=== PATIENT | female | born 1995 | race Caucasian/White ===

== ENCOUNTER 2020-02-05 18:49 | Emergency (ER) | payer OTHER, BC, SELFPAY ==
[2020-02-05 18:54] VITALS: BP 132/73; PULSE 89; RESP 18; TEMP 36.7; O2SAT 98; BMI 21.5
--- NOTE | 2020-02-05 19:10 | W.ED.FEMALGU ---
HPI - Female Genitourinary General: Chief complaint: Urogenital-Female Stated complaint: 8 weeks preg cramping/bleeding Time Seen by Provider: 02/05/20 18:58 History of Present Illness: HPI Narrative: Patient is a 24-year-old female presenting with concerns regarding a 8-week . She reports that she has been having a lot of cramping over the last 2 days and this evening had a small amount of bleeding. She has had 2 prior pregnancies, one was a miscarriage at about 5 weeks with no interventions required. Her second was a normal term with no complications and a vaginal delivery. She is taken several home tests that were positive. The first was around the first of this month. She is otherwise feeling fine and has no complaints. MD elicited complaint: dysuria, vaginal bleeding, pelvic pain and possible miscarriage Pertinent past history: prior miscarriages Onset (ago): day(s) (2) Quality of pain: cramping Associated symptoms: Deny abdominal pain, headache(s) or nausea Date of Last Menstrual Period: 12/12/19 Review of Systems General: Reports: 10 or more systems reviewed and unremarkable except in HPI and below Const: Denies: fever(s), chills, fatigue or malaise Eyes: Denies: change in vision ENMT: Denies: odynophagia Card: Denies: chest pain or swelling of feet/ankles Resp: Denies: dyspnea, productive cough or non-productive cough GI: Denies: abdominal pain, nausea or vomiting : Reports: vaginal bleeding and pelvic pain; Denies: flank pain or difficulty voiding Musc: Denies: neck pain or back pain Skin/Breast: Denies: rash Neuro: Denies: headache(s), numbness in extremities or weakness in extremities Froy/Lymph: Denies: easy bruising or easy bleeding PFSH ED PFSH: Social History Smoking and tobacco status: never smoked Female Reproductive History: Date of last menstrual period: 12/12/19 Physical Exam Const: COMMON NORMALS: no acute distress, patient oriented x3, no limitations and alert GENERAL APPEARANCE: cooperative and comfortable HENMT: HEAD & SCALP: normal to inspection FACE & SINUS: normal facial exam Eye: GENERAL EYE: appearance normal, both eyes and all related structures Neck/C-Spine: COMMON NORMALS: supple, no meningeal signs and no JVD Chest: COMMONS NORMALS: normal inspection of the chest Resp: COMMON NORMALS: normal respiratory effort, No use of accessory muscles and clear to auscultation bilaterally AUSCULTATION: clear to auscultation bilaterally Cardio: COMMON NORMALS: no JVD, regular rate, regular rhythm and No murmurs present (Cardio) RATE: regular rate RHYTHM: regular rhythm GI: COMMON NORMALS: Normal to inspection, nondistended, normoactive bowel sounds present, Soft to palpation and non-tender INSPECTION: Yes normal to inspection AUSCULTATION: Yes normoactive bowel sounds PALPATION: Yes Soft to palpation Back/Pelvis: COMMON NORMALS: thoracic and lumbar spine normal to inspection Extremity: COMMON NORMALS: normal to inspection Neuro: COMMON NORMALS: patient oriented x3, moves all extremities, no focal motor deficits and no sensory deficits noted SENSORIUM/ORIENTATION: Yes alert MENINGEAL SIGNS: Yes no meningeal signs Psych: COMMON NORMALS: mental status grossly normal, cooperative and normal affect Skin: COMMON NORMALS: no rashes or lesions noted and turgor normal GENERAL SKIN EXAM: no rashes or lesions noted and turgor normal Course ED course: Bedside transabdominal US done showing no clear IUP. Labs pending including quant HCG. Depending on level may need a formal US. Reevaluation(s): Reevaluation #1: US shows a 6 + week with a normal heart rate around 130. Very small subchorionic hemorrhage. Vital Signs: Vital signs: Vital Signs Temperature 98.0 F 02/05/20 18:54 Pulse Rate 89 02/05/20 18:54 Respiratory Rate 18 02/05/20 18:54 Blood Pressure 132/73 02/05/20 18:54 Pulse Oximetry 98 02/05/20 18:54 MDM - Female Lab Data: Labs: Lab Results 02/05/20 02/05/20 02/05/20 Range/Units 19:25 19:28 19:28 WBC 8.4 (4.0-10.0) 10^3/ uL RBC 4.26 (4.1-5.3) 10^6/u L Hgb 12.2 (11.5-15.3) g/dL Hct 37.1 (37.0-47.0) % MCV 87.1 (81-99) fL MCH 28.6 (28.0-34.0) pg MCHC 32.9 (30.0-36.0) g/dL RDW 12.7 (12.1-15.1) % Plt Count 323 (130-400) 10^3/c mm MPV 8.9 (7.4-10.4) fL Neut % (Auto) 64.9 % Lymph % (Auto) 26.5 % [place] % (Auto) 7.2 % Eos % (Auto) 1.0 % Baso % (Auto) 0.2 % Neut # (Auto) 5.5 (1.8-7.7) 10^3/u L Lymph # (Auto) 2.2 (0.8-4.8) 10^3/u L [place] # (Auto) 0.6 (0.2-0.9) 10^3/u L Eos # (Auto) 0.1 (0.0-0.8) 10^3/u L Baso # (Auto) 0.0 (0.0-0.1) 10^3/u L Nucleated RBC % (a uto) 0 % Nucleated RBCs # 0.0 /100WBC Sodium 138 (136-145) mmol/L Potassium 3.6 (3.5-5.1) mmol/L Chloride 103 (98-107) mmol/L Carbon Dioxide 24 (22-29) mmol/L Anion Gap 14.6 (5-19) BUN 4 L (6-20) mg/dL Creatinine 0.5 (0.5-0.9) mg/dL GFR Calculation 154.3 H (90-130) mL/min Glucose 92 (65-115) mg/dL Calculated Osmolal ity 281 L (285-295) mOsm/k g Calcium 10.2 (8.5-10.5) mg/dL Total Bilirubin 0.3 (0.15-1.2) mg/dL AST 15 (0-32) U/L ALT 13 (0-33) U/L Alkaline Phosphata se 77 (35-105) IU/L Total Protein 7.3 (6.6-8.7) g/dL Albumin 3.9 (3.5-5.2) g/dL Globulin 3.4 (1.3-4.6) g/dL [place] , [place] [address].00 mIU/mL Urine Color Straw (Yellow) Urine Appearance Clear (CLEAR) Urine pH 6 (5-7) Ur Specific Gravit y 1.010 (1.005-1.030) Urine Protein Neg (Negative) Urine Glucose (UA) Norm (Normal) Urine Ketones Negative (Negative) Urine Blood Neg (Negative) Urine Nitrate Negative (Negative) Urine Bilirubin Neg (NEGATIVE) Urine Urobilinogen Norm (Negative) mg/dL Ur Leukocyte Jazzy ase Negative (Negative) Discharge Plan Discharge Patient Disposition: Home, Self-Care Clinical Impression: Threatened in first trimester Condition: Stable Prescriptions: No Action No Known Home Medications RF: 0 Discharge Orders: Discharge Order (Routine); Ordered 02/05/20 Ordered By: Ambreen Calderon Referrals: Quincy Argueta MD [Primary Care Provider] - Discharge Diet: Usual diet Discharge Activity: Resume usual activity Patient Instructions: Threatened Miscarriage (ED) Activity Restrictions/Additional Instructions: Rest and avoid heavy lifting or intercourse. Follow up with your OB doctor to establish care. Return to the ED if new or worse symptoms including bleeding through more than a pad per hour for more than 2 hours in a row - or severe pain or fever. Coding Level of Care Code ED Supervisor Public Health Nursing for [employer] Fwd Exam Comprehensive
[2020-02-05 19:38] LABS: Basophils % 0.2 %; Eosinophils # 0.1 10^3/uL (0.0-0.8); Hematocrit 37.1 % (37.0-47.0); Hemoglobin 12.2 g/dL (11.5-15.3); Lymphocytes # 2.2 10^3/uL (0.8-4.8); Lymphocytes % 26.5 %; Mean Corpuscular HGB Conc 32.9 g/dL (30.0-36.0); Mean Corpuscular Hemoglobin 28.6 pg (28.0-34.0); Mean Corpuscular Volume 87.1 fL (81-99); Mean Platelet Volume 8.9 fL (7.4-10.4); Monocytes # 0.6 10^3/uL (0.2-0.9); Monocytes % 7.2 %; Neutrophils # 5.5 10^3/uL (1.8-7.7); Neutrophils % 64.9 %; Nucleated Red Blood Cells % 0 %; Platelet Count 323 10^3/cmm (130-400); Red Blood Count 4.26 10^6/uL (4.1-5.3); Red Cell Distribution Width 12.7 % (12.1-15.1); White Blood Count 8.4 10^3/uL (4.0-10.0)
[2020-02-05 19:45] LABS: Add Urine Microscopic? NO
[2020-02-05 19:52] LABS: Bilirubin Urine Neg (NEGATIVE); Blood Urine Neg (Negative); Glucose Urine UA Norm (Normal); Ketones Urine Negative (Negative); Leukocyte Esterase Urine Negative (Negative); Nitrate Urine Negative (Negative); Protein Urine Neg (Negative); Urine Appearance Clear (CLEAR); Urine Color Straw (Yellow); Urobilinogen Urine Norm (Negative); pH Urine 6 (5-7)
[2020-02-05 20:05] LABS: Alanine Aminotransferase 13 U/L (0-33); Albumin Level 3.9 g/dL (3.5-5.2); Alkaline Phosphatase 77 IU/L (35-105); Anion Gap 14.6 (5-19); Aspartate Amino Transferase 15 U/L (0-32); Blood Urea Nitrogen 4 mg/dL (6-20); Calcium 10.2 mg/dL (8.5-10.5); Carbon Dioxide 24 mmol/L (22-29); Chloride 103 mmol/L (98-107); Globulin 3.4 g/dL (1.3-4.6); Glomerular Filtration Rate 154.3 mL/min (90-130); Glucose 92 mg/dL (65-115); Osmolality Calculated 281 mOsm/kg (285-295); Potassium 3.6 mmol/L (3.5-5.1); Sodium 138 mmol/L (136-145); Total Bilirubin 0.3 mg/dL (0.15-1.2); Total Protein 7.3 g/dL (6.6-8.7)
--- NOTE | 2020-02-05 20:25 | US_ITS ---
WS: [id number] ULTRASOUND EARLY TECHNIQUE: Transabdominal sonography of the pelvis was performed. Followed by transvaginal sonography to better evaluate the uterus and ovaries. CLINICAL INFORMATION: preg, pelvic pain, bleeding LMP: 12/17/2019 Beta hCG: Unknown. COMPARISON: None. FINDINGS: UTERUS AND GESTATIONAL SAC Intrauterine gestations: Cervix measures 3.8 cm Intrauterine gestational sac. pole measures 8.5 mm Estimated gestational age: 6w6d Estimated delivery September 24, 2020 Yolk sac: 0.2 cm. heart motion: 136 BPM. Subchorionic hemorrhage: Small amount of subchorionic hemorrhage measuring 1.8 x 1.0 cm. OVARIES Right ovary: Normal. Left ovary: Normal. FREE FLUID Small amount of free fluid in the cul-de-sac. 2. Estimated gestational age: 6w6d 3. Small amount of subchorionic hemorrhage measuring 1.8 x 1.0 cm. Recommend short interval follow-u p. 4. Small amount of free fluid in the cul-de-sac. 5. Normal ovaries. US/US OB <=14 wk fetus w transvag IMPRESSION: 1. Single live intrauterine .
[2020-02-05 21:56] VITALS: BP 132/72; PULSE 72; RESP 18; O2SAT 98
== END 2020-02-05 21:57 | disposition home or self-care (01) ==
PROVIDERS: Emergency Provider Emergency Medicine; PCP Family Medicine
DX: O20.0 Threatened abortion (principal); Z3A.08 8 weeks gestation of pregnancy
CPT/HCPCS: 12345; 36415; 76801; 76817; 80053; 81003; 84702; 85025; 99282; 99283

== ENCOUNTER 2021-04-22 21:46 | Emergency (ER) | payer MEDICAID, SELFPAY ==
[2021-04-22 22:51] VITALS: BP 121/82; PULSE 110; RESP 18; TEMP 36; O2SAT 99; BMI 22.9
--- NOTE | 2021-04-22 22:52 | W.ED.GENADLT ---
HPI - General Adult General: Chief complaint: COVID symptoms Stated complaint: melgar,fever,covid exposure Time Seen by Provider: 04/22/21 22:36 Source: patient Mode of arrival: ambulatory Limitations: no limitations History of Present Illness: HPI narrative: 25-year-old female states she is been exposed to multiple people with Covid over the last week. States today she started to feel unwell. States she has had some fatigue. She denies any cough denies any fever. She denies any pain anywhere. She states she is also concerned as her 3-month old had this had a slight cough. She states that she would like to be tested for Covid. Associated symptoms: Deny chest pain, dyspnea, headache(s), nausea, rash or vomiting Review of Systems Const: Reports: fever(s), chills and body aches Eyes: Denies: blurry vision or eye discomfort ENMT: Denies: throat pain or dental pain Card: Denies: chest pain Resp: Denies: dyspnea GI: Denies: abdominal pain, nausea, vomiting or diarrhea : Denies: dysuria Musc: Denies: neck pain or back pain Skin/Breast: Denies: rash Neuro: Denies: headache(s) Psych: Denies: depression Froy/Lymph: Denies: easy bruising All/Imm: Denies: urticaria PFSH ED PFSH: Social History Smoking and tobacco status: never smoked Female Reproductive History: Date of last menstrual period: 12/12/19 Physical Exam Const: COMMON NORMALS: no acute distress, patient oriented x3 and healthy appearing HENMT: COMMON NORMALS: normocephalic and atraumatic HEAD & SCALP: normocephalic and atraumatic Eye: COMMON NORMALS: Equal, round and reactive pupils present and EOMs intact bilaterally PUPIL: Yes Equal, round and reactive pupils present Neck/C-Spine: COMMON NORMALS: full ROM and supple Chest: COMMONS NORMALS: normal inspection of the chest and normal palpation of entire chest wall Resp: COMMON NORMALS: normal respiratory effort, No retractions, No use of accessory muscles and clear to auscultation bilaterally AUSCULTATION: clear to auscultation bilaterally Cardio: COMMON NORMALS: regular rate, regular rhythm and No murmurs present (Cardio) RATE: regular rate RHYTHM: regular rhythm GI: COMMON NORMALS: Normal to inspection, nondistended, normoactive bowel sounds present, Soft to palpation, non-tender and no masses PALPATION: Yes Soft to palpation Extremity: COMMON NORMALS: normal to inspection and full ROM Neuro: COMMON NORMALS: patient oriented x3, moves all extremities and no focal motor deficits Psych: COMMON NORMALS: mental status grossly normal, Normal thought process present and cooperative THOUGHT PROCESS: Normal thought process present Skin: COMMON NORMALS: no rashes or lesions noted and no wounds GENERAL SKIN EXAM: no rashes or lesions noted Course Vital Signs: Vital signs: Vital Signs Temperature 96.8 F L 04/22/21 22:51 Pulse Rate 110 H 04/22/21 22:51 Respiratory Rate 18 04/22/21 22:51 Blood Pressure 121/82 04/22/21 22:51 Pulse Oximetry 98 04/22/21 22:59 MDM - General Adult MDM Narrative: Medical decision making narrative: Patient presents here with Covid exposure. She said some malaise but is well-appearing here. Will do [facility] Covid she is to follow-up PCP and return if worsening. Discharge Plan Discharge Patient Disposition: Home Clinical Impression: Acute viral syndrome Condition: Stable Prescriptions: No Action No Known Home Medications RF: 0 Discharge Orders: Discharge ED (Routine); Ordered 04/22/21 Ordered By: Michelle Horner Referrals: Quincy Argueta MD [Primary Care Provider] - Discharge Diet: Advance as tolerated Discharge Activity: Resume usual activity Patient Instructions: Viral Syndrome (ED) Coding Level of Care Code ED Manager [employer] for [employer] Ayala
[2021-04-22 22:59] VITALS: O2SAT 98
[2021-04-22 23:01] VITALS: PULSE 110; RESP 18; O2SAT 98
[2021-04-23 14:48] LABS: Coronavirus Test Green County Detected
--- NOTE | 2021-04-24 17:38 | PC.NURSE ---
NOTIFIED PT JO COKER OF POSITIVE COVID 19 RESULT ON 04/24/21 ON 0307.
== END 2021-04-22 23:05 | disposition home or self-care (01) ==
PROVIDERS: Emergency Provider Emergency Medicine
DX: U07.1 COVID-19 (principal)
CPT/HCPCS: 87635; 99282